=== PATIENT | male | born 1980 ===

== ENCOUNTER 2024-07-08 19:08 | Emergency (ER) | payer SELFPAY ==
[2024-07-08 19:12] VITALS: BP 142/92; PULSE 108; RESP 20; TEMP 36.4; O2SAT 93
--- NOTE | 2024-07-08 23:19 | PC.NURSE ---
Patient called for room assignment, no answer and not seen in waiting room. Will call again in case in bathroom.
--- NOTE | 2024-07-08 23:59 | PC.NURSE ---
Patient called again for room assignment, no answer and not seen in waiting room. Patient marked as left without being seen, triaged.
== END 2024-07-09 00:08 | disposition left against medical advice (07) ==
LOC: ANHED 07-09 00:04
PROVIDERS: Emergency Provider Emergency Medicine
DX: S49.92XA Unspecified injury of left shoulder and upper arm, initial encounter (principal); V29.99XA Rider (driver) (passenger) of other motorcycle injured in unspecified traffic accident, initial encounter
CPT/HCPCS: 71046; 73030; 99199